=== PATIENT | female | born 1955 | race Caucasian/White ===

== ENCOUNTER 2020-09-14 13:30 | Outpatient (RCR) | payer MEDICARE, OTHER, SELFPAY | END 2020-09-14 13:47 | disposition other institution (70) | LOC: HO.PT 13:30 | PROVIDERS: PCP Internal Medicine; Visit Provider Internal Medicine | DX: R42 Dizziness and giddiness (principal) | CPT/HCPCS: 95992; 97112; 97140; 97530; 97535 ==

== ENCOUNTER 2020-10-29 09:34 | Outpatient (REF) | payer MEDICARE, OTHER, SELFPAY ==
[2020-10-29 10:06] LABS: MANUAL DIFF FLAG NO
[2020-10-29 10:15] LABS: Basophils Percent Auto 0.7 % (0-2); Eosinophils Absolute Auto 0.1 X10*3/uL (0.0-0.4); Eosinophils Percent Auto 3.2 % (0-4); Hematocrit 43.8 % (37-47); Hemoglobin 13.8 g/dl (12.0-16.0); Imm Gran Abs Auto 0.02 X10*3/uL (0.00-0.03); Imm Gran Pct Auto 0.5 % (0.0-0.4); Lymphocytes Absolute Auto 1.6 X10*3/uL (1.2-4.9); Lymphocytes Percent Auto 36.5 % (20-40); Mean Corpuscular HGB Conc 31.5 g/dl (31.0-35.0); Mean Corpuscular Hemoglobin 29.4 pg (27.0-33.0); Mean Corpuscular Volume 93.2 fL (80-98); Mean Platelet Volume 9.7 fL (9.4-12.3); Monocytes Absolute Auto 0.4 X10*3/uL (0.1-1.2); Monocytes Percent Auto 8.6 % (2-11); Neutrophils Absolute Auto 2.2 X10*3/uL (2.0-8.3); Neutrophils Percent Auto 50.5 % (45-73); Platelet Count 362 X10*3/uL (160-400); Red Cell Distribution Width 12.8 % (11.0-16.0); White Blood Count 4.4 X10*3/uL (4.8-10.8)
[2020-10-29 10:41] LABS: Alanine Aminotransferase 11 U/L (0-31); Albumin Level 3.9 g/dL (3.5-5.0); Alkaline Phosphatase 110 U/L (39-117); Anion Gap 10 (12-20); Aspartate Amino Transferase 15 U/L (5-31); Bilirubin Direct 0.2 mg/dL (0.0-0.5); Bilirubin Total 0.7 mg/dL (0.0-1.0); Blood Urea Nitrogen 15 mg/dL (9-16); Calcium 9.2 mg/dL (8.4-10.2); Carbon Dioxide 29 mmol/L (22-29); Chloride 104 mmol/L (96-108); Estimated Glomerular Filt Rate > 60; Glucose Random 120 mg/dL (60-115); Potassium 4.9 mmol/L (3.3-5.1); Sodium 138 mmol/L (135-145); Total Protein 6.8 g/dL (6.5-8.0)
[2020-10-29 11:01] LABS: TSH reflex Free T4 4.55 uIU/mL (0.32-4.0); Vitamin D 25-OH Total 31.4 ng/mL (>30)
[2020-10-29 11:13] LABS: Erythrocyte Sedimentation Rate 23 MM/HR (0-20)
[2020-10-29 11:35] LABS: Free T4 (Free Thyroxine) 0.87 ng/dL (0.71-1.85)
[2020-10-29 11:43] LABS: Estimated Average Glucose 114 mg/dL; Hemoglobin A1c % 5.6 %
[2020-10-29 18:13] LABS: Folate 4.6 ng/mL (> or = 4.0); Vitamin B12 416 pg/mL (200-900)
== END 2020-10-29 09:35 | disposition home or self-care (01) ==
LOC: HO.LAB 09:34
PROVIDERS: PCP Internal Medicine; Visit Provider Internal Medicine
DX: Z00.00 Encounter for general adult medical examination without abnormal findings (principal); E55.9 Vitamin D deficiency, unspecified; R42 Dizziness and giddiness
CPT/HCPCS: 36415; 80048; 80076; 82306; 82607; 82746; 83036; 84439; 84443; 85025; 85652

== ENCOUNTER 2020-10-31 13:23 | Outpatient (REF) | payer MEDICARE, OTHER, SELFPAY ==
--- NOTE | ~2020-10-31 | MR_ITS ---
MR BRAIN WITHOUT AND WITH IV CONTRAST CLINICAL INFORMATION: Worsening vertigo, refractory to medication. COMPARISON: None available. TECHNIQUE: Multiplanar, multisequence MRI of the brain was obtained before and after the intravenous administration of 7 mL Gadavist. FINDINGS: There is no pathologic intracranial enhancement. 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 There is no hydrocephalus, extra-axial surface collection, or herniation. The major flow voids at the skull base are preserved. There is no acute infarct on diffusion-weighted imaging. There is no intracranial hemorrhage on the gradient recalled echo acquisition. The midline structures are normal. The cerebellar tonsils are normally positioned. The cerebellum and brainstem are normal. The craniocervical junction is normal. Osseous marrow signal intensity is homogenous. Partially imaged large mass within the left carotid space partially imaged at the lowermost aspects of this study, better defined on the 01/13/[address] This lesion cannot be diagnostically compared across modalities. There is a retention cyst within the left maxillary sinus and there is mild mucosal thickening within the ethmoid air cells bilaterally. Small bilateral mastoid effusions. MR/MR head/brain wo/w con IMPRESSION: - Partially imaged large mass within the left carotid space at the lowermost aspects of this study, better defined on the 01/13/[address] This lesion cannot be diagnostically compared across modalities. - No acute intracranial findings. No enhancing lesions. 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
== END 2020-10-31 13:24 | disposition home or self-care (01) ==
LOC: HO.MRI 13:23
PROVIDERS: PCP Internal Medicine; Visit Provider Internal Medicine
DX: R42 Dizziness and giddiness (principal)
CPT/HCPCS: 70553; A9585

== ENCOUNTER 2021-02-21 11:19 | Outpatient (REF) | payer MEDICARE, OTHER, SELFPAY ==
--- NOTE | ~2021-02-21 | MM_ITS ---
EXAMINATION: MM SCREENING DIGITAL BREAST TOMOSYNTHESIS, BILATERAL CLINICAL INFORMATION: Screening. Asymptomatic. The lifetime risk of breast cancer based on the Tyrer-Cuzick Model is 1.9%. COMPARISON: Mammography: January 13, 2018 TECHNIQUE: Digital breast tomosynthesis is performed in both the craniocaudal and mediolateral oblique views along with computer-aided detection (CAD). Synthesized 2D images are generated from the tomosynthesis. Additional right exaggerated craniocaudal view performed. FINDINGS: There are scattered areas of fibroglandular density (ACR BI-RADS breast composition Category b). There are no significant masses, abnormal calcifications, or other abnormalities. MM/MM tomosynthesis screening BI IMPRESSION: There are no significant changes from prior study. ASSESSMENT: BI-RADS 1: Negative RECOMMENDATION: Routine annual mammography screening. This patient's information was entered into a reminder system with a target due date for their next mammogram.
== END 2021-02-21 11:20 | disposition home or self-care (01) ==
LOC: HO.MAMMO 11:19
PROVIDERS: Visit Provider Internal Medicine
DX: Z12.31 Encounter for screening mammogram for malignant neoplasm of breast (principal)
CPT/HCPCS: 77063; 77067

== ENCOUNTER 2021-09-17 13:25 | Outpatient (RCR) | payer MEDICARE, OTHER, SELFPAY ==
[2021-09-17 13:59] VITALS: BP 129/67; PULSE 85
== END 2021-11-06 14:33 | disposition home or self-care (01) ==
LOC: HO.PT 13:25
PROVIDERS: PCP Internal Medicine; Visit Provider Nurse Practitioner Primary Care
DX: R42 Dizziness and giddiness (principal)
CPT/HCPCS: 97112; 97161

== ENCOUNTER 2022-03-05 11:43 | Outpatient (REF) | payer MEDICARE, OTHER, SELFPAY ==
--- NOTE | ~2022-03-05 | MM_ITS ---
EXAMINATION: MM SCREENING DIGITAL BREAST TOMOSYNTHESIS, BILATERAL CLINICAL INFORMATION: Screening. Asymptomatic. The lifetime risk of breast cancer based on the Tyrer-Cuzick Model is 2.0%. COMPARISON: Mammography: February 21, 2021 and January 13, 2018 TECHNIQUE: Digital breast tomosynthesis is performed in both the craniocaudal and mediolateral oblique views along with computer-aided detection (CAD). Synthesized 2D images are generated from the tomosynthesis. FINDINGS: There are scattered areas of fibroglandular density (ACR BI-RADS breast composition Category b). There are no significant masses, abnormal calcifications, or other abnormalities. MM/MM tomosynthesis screening BI IMPRESSION: There are no significant changes from prior study. ASSESSMENT: BI-RADS 1: Negative RECOMMENDATION: Routine annual mammography screening. This patient's information was entered into a reminder system with a target due date for their next mammogram.
== END 2022-03-05 11:44 | disposition home or self-care (01) ==
LOC: HO.MAMMO 11:43
PROVIDERS: Visit Provider Internal Medicine
DX: Z12.31 Encounter for screening mammogram for malignant neoplasm of breast (principal)
CPT/HCPCS: 77063; 77067

== ENCOUNTER 2022-09-10 13:46 | Outpatient (REF) | payer MEDICARE, OTHER, SELFPAY ==
--- NOTE | 2022-09-10 08:45 | EMG_ITS ---
Please see scanned EMG / Nerve Conduction Report. MTDD
== END 2022-09-10 13:47 | disposition home or self-care (01) ==
LOC: HO.NEURO 13:46
PROVIDERS: Visit Provider Internal Medicine
DX: G56.03 Carpal tunnel syndrome, bilateral upper limbs (principal)
CPT/HCPCS: 95885; 95913

== ENCOUNTER 2023-03-11 11:24 | Outpatient (REF) | payer MEDICARE, OTHER, SELFPAY ==
--- NOTE | ~2023-03-11 | MM_ITS ---
EXAMINATION: MM SCREENING DIGITAL BREAST TOMOSYNTHESIS, BILATERAL CLINICAL INFORMATION: Screening. Asymptomatic. The lifetime risk of breast cancer based on the Tyrer-Cuzick Model is 3%. COMPARISON: Mammography: 03/05/2022, 02/21/2021, 01/13/2018 (new baseline) TECHNIQUE: Digital breast tomosynthesis is performed in both the craniocaudal and mediolateral oblique views along with computer-aided detection (CAD). Synthesized 2D images are generated from the tomosynthesis. FINDINGS: There are scattered areas of fibroglandular density (ACR BI-RADS breast composition Category b). There are no significant masses, abnormal calcifications, or other abnormalities. Parenchymal pattern is similar to prior studies. There is no developing density or architectural abnormality. The axilla and skin contours are unremarkable. No significant changes. MM/MM tomosynthesis screening BI IMPRESSION: No mammographic evidence of malignancy. ASSESSMENT: BI-RADS 1: Negative RECOMMENDATION: Routine annual mammography screening. This patient's information was entered into a reminder system with a target due date for their next mammogram.
== END 2023-03-11 11:25 | disposition home or self-care (01) ==
LOC: HO.MAMMO 11:24
PROVIDERS: PCP Internal Medicine; Visit Provider Internal Medicine
DX: Z12.31 Encounter for screening mammogram for malignant neoplasm of breast (principal)
CPT/HCPCS: 77063; 77067

== ENCOUNTER 2023-04-07 20:28 | Outpatient (REF) | payer MEDICARE, OTHER, SELFPAY | END 2023-04-07 20:29 | disposition home or self-care (01) | LOC: HO.HHCLNP 20:28 | PROVIDERS: Visit Provider Emergency Medicine | DX: J02.9 Acute pharyngitis, unspecified (principal) | CPT/HCPCS: 87070 ==

== ENCOUNTER 2023-04-08 10:43 | Outpatient (REF) | payer MEDICARE, OTHER, SELFPAY | END 2023-04-08 10:44 | disposition home or self-care (01) | LOC: HO.LNP 10:43 | PROVIDERS: Visit Provider Emergency Medicine | DX: J02.9 Acute pharyngitis, unspecified (principal); Z20.822 Contact with and (suspected) exposure to COVID-19 | CPT/HCPCS: 87636 ==

== ENCOUNTER 2024-11-11 14:33 | Outpatient (REF) | payer OTHER, SELFPAY ==
--- OUTSIDE RECORDS SUMMARY | 2024-11-11 15:02 | XMS_ITS | Clinical Summary ---
Author Organization [employer] Address [address] [place] [address] [address] [place] [address] Care Team Providers Care Leisure Studies Professor Name Role Phone Name, Torres OWENS Primary Care Provider [phone] Allergies No known active allergies Medications acetaminophen [...] Care Team Description 09/14/2024 Community Care Management [facility] [address] [place] [address] Physician Sheppard MD from Last 3 Months [...] Recently Relevant to Health Maintenance Insurance MEDICARE [facility] PPO [employer] MEDICARE Care Teams Leisure Studies Professor Relationship Specialty Start Date End Date Name, MD Torres [address] [place] [address] PCP - General Internal Medicine 06/01/24
--- OUTSIDE RECORDS SUMMARY | 2024-11-11 15:02 | XMS_ITS | Encounter Summary ---
Author Organization [employer] Address [address] [facility] [address] [place] [address] Care Team Providers Care Chemical Strength Tester Name Role Phone Name, Torres OWENS Primary Care Provider [phone] Encounter Details Date Type Department Care Team (Late st Contact Info) Description 09/14/2024 Community Care Management [facility] [address] [place] [address] Epiccare Link, Physician, Social History Tobacco Use [...] documented as of this encounter Care Teams Chemical Strength Tester Relationship Specialty Start Date End Date Name, MD Torres [address] [place] [address] PCP - General Internal Medicine 06/01/24 documented as of this encounter
--- OUTSIDE RECORDS SUMMARY | 2024-11-11 15:02 | XMS_ITS | Encounter Summary ---
Author Organization [employer] Address [address] [facility] [address] [place] [address] Care Team Providers Care Production Roustabout Name Role Phone Liz Muse Primary Care Provider [phone] Name, Torres OWENS Primary Care Provider [phone] Reason for Visit * Reason Onset Date Comments Results 09/16/2022 Encounter Details Date Type Department Care Team ([facility] st Contact Info) Description 09/16/2022 Telephone [facility] [address] [place], [place] [phone] Carmen Davis MD Results Social History Tobacco [...] on filedocumented in this encounter Care Teams Production Roustabout Relationship Specialty Start Date End Date Liz Muse FNP [address] [place] [address] PCP - General Family Medicine 09/16/22 05/31/24 Name, MD Torres [address] [place] [address] PCP - General Internal Medicine 06/01/24 documented as of this encounter
== END 2024-11-11 14:34 | disposition home or self-care (01) ==
LOC: HO.LAB 14:33
PROVIDERS: PCP Internal Medicine; Visit Provider Urology
DX: N39.0 Urinary tract infection, site not specified (principal); N39.41 Urge incontinence; R35.1 Nocturia
CPT/HCPCS: 51798; 81003; 87086; 87088; 87186

== ENCOUNTER 2024-11-11 14:33 | Outpatient (AMB) | payer OTHER, SELFPAY ==
--- OUTSIDE RECORDS SUMMARY | 2024-11-11 14:36 | XMS_ITS | Encounter Summary ---
Author Organization [employer] Address [address] [facility] [address] [place] [address] Care Team Providers Care Clinical Social Work Therapist Name Role Phone Liz Muse Primary Care Provider [phone] Name, Torres OWENS Primary Care Provider Reason for Visit * Reason Onset Date Comments Results 09/16/2022 Encounter Details Date Type Department Care Team ([facility] st Contact Info) Description 09/16/[address] [facility] [address] [place], [place] [id number] Carmen Davis MD Results Social History Tobacco Use Types Packs/Day Years Used Date Smoking Tobacco: Never Assessed Comments Unknown Sex and Gender Information Value Date Recorded Sex Assigned at Female 07/28/2022 10:18 AM EDT Legal Sex Female 10:18 AM EDT Gender Identity Female 07/28/2022 10:18 AM EDT Sexual Orientation Straight 07/28/2022 10 :18 AM EDT documented as of this encounter Miscellaneous Notes * Telephone Encounter - Rosie Obando - 09/16/2022 2:54 PM EST Tc from pt requesting a call back with Carpal tunnel results. PCP DR. Davis documented in this encounter Plan of Treatment Not on file documented as of this encounter Visit Diagnoses Not on filedocumented in this encounter Care Teams Clinical Social Work Therapist Relationship Specialty Start Date End Date Liz Muse FNP [address] [place] [address] PCP - General Family Medicine 09/16/22 05/31/24 Name, MD Torres [address] [place] [address] PCP - General Internal Medicine 06/01/24 documented as of this encounter
--- OUTSIDE RECORDS SUMMARY | 2024-11-11 14:36 | XMS_ITS | Clinical Summary ---
Author Organization [employer] Address [address] [place] [address] [address] [place] [address] Care Team Providers Care Coil Connector Repairer Name Role Phone Name, Torres OWENS Primary Care Provider [phone] Allergies No known active allergies Medications acetaminophen (Tylenol) 500 MG tablet Take 2 tablets (1,000 mg) by mouth every 6 (six) hours if needed for moderate pain or fever for up to 25 doses. 50 tablet 04/07/2023 Active Incontinence Supply Disposable (Prevail Adult Brief Large) miscIndications :Incontinence in female 1 Pad if needed in the morning, at noon, and at bedtime (urinary incontinence) . 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 Impaired fasting glucose 07/10/2017 Hepatitis C antibody test positive 06/22/2017 Osteoarthritis of knee 06/22/2017 Impaired glucose tolerance 06/22/2017 Encounters Date Type Department Care Team Description 09/14/2024 Community Care Management [facility] [address] [place] [address] Physician Sheppard MD from Last 3 Months Immunizations Name Administration Dates Next Due Moderna Covid-19 Vaccine 6+ Bivalent 12/12/2022 Pneumococcal Conjugate PCV 13 03/07/2021 Tdap 12/10/2017,12/06/2009 Zoster, live 12/10/2017 Family History Medical History Relation Name Comments Prostate cancer Father Heart attack Mother Heart failure Mother Relation Name Status Comments Father Mother Social History Tobacco Use Types Packs/Day Years Used Date Smoking Tobacco: Never Smokeless Tobacco: Never Tobacco Cessation:Counseling Given: Not Answered Alcohol Use Standard Drinks/Week Comments Not Currently 0 (1 standard drink = 0.6 oz pur e alcohol) Depression Answer Date Recorded Patient Health Questionnaire-9 Score 0 10/31/2022 Housing Stability Answer Date Recorded What is your housing situation today? I have nola diez 08/05/[address] you li ve. Do you have problems with any of the following? None of the above 08/05/2023 Food Insecurity Answer Date Recorded Within the past 12 months, y ou worried that your food would run out before you got money to buy more: Never True 08/05/2023 Within the past 12 months,th e food you bought just didn't last and you didn't have enough money to get more: Never True 04/2023 Transportation Answer Date Recorded In the past 12 months, has l ack of transportation kept you from medical appts, meetings, work or from getting things needed for daily living? No 08/05/2023 Utilities Answer Date Recorded In the past 12 months, has t he electric, gas, oil or water company threatened to shut off services in your home? No 08/05/2023 Depression Answer Date Recorded Patient Health Questionnaire-2 Score 0 10/31/2022 Comments Unknown Sex and Gender Information Value Date Recorded Sex Assigned at Female 07/28/2022 10:18 AM EDT Legal Sex Female 10:18 AM EDT Gender Identity Female 07/28/2022 10:18 AM EDT Sexual Orientation Straight 07/28/2022 10 :18 AM EDT Last Filed Vital Signs Vital Sign Reading Time Taken Comments Blood Pressure 119/73 05/04/2024 3:29 PM EDT Pulse 85 05/04/2024 3:29 PM EDT Temperature 36.7 ??C (98 ??F) 04/07/2023 10:12 AM EDT Respiratory Rate 14 05/04/2024 3:29 PM EDT Oxygen Saturation 98% 05/04/2024 3:29 PM EDT Inhaled Oxygen Concentration - - Weight 73.8 kg (162 lb 9.6 oz) 05/04/2024 3:29 P M EDT Height 165.1 cm (5' 5 ) 10/31/2022 10:36 AM EST Body Mass Index 27.06 10/31/2022 10:36 AM EST Plan of Treatment Health Maintenance Due Date Last Done Comments CT Colonography 1953 Colonoscopy 1953 Colorectal Cancer Screening 1953 FIT DNA/Cologuard 1953 FIT 1953 FOBT 1953 Sigmoidoscopy 1953 Alcohol/Substance Use Screening 1965 Hepatitis C Screening 1971 Zoster Vaccines (2 of 3) 02/04/2018 12/10/2017 Pneumococcal Vaccine: 50+ Years (2 of 2 - PPSV23) 03/07/2022 03/07/2021 Depression Screening 10/31/2023 10/31/2022, 10/31/19 SDOH Screening 10/31/2023 10/31/2022 Mammogram 03/05/2024 03/05/2022, 01/27, 01/18/2018 COVID-19 Vaccine ( season) 2024 12/12/2022, 08/29/2021, 01/28/2021, Additional history exists Influenza Vaccine (#1) 2024 Tobacco Screening 05/04/2025 05/04/2024 DTaP/Tdap/Td Vaccines (3 - Td or Tdap) 12/11/2027 12/10/2017, 12/06/2009 RSV Patients and Patients Aged 60 years or older (1 - 1-dose 75+ series) 01/30/2028 HIB Vaccines Aged Out No longer eligi ble based on patient's age to complete this topic HPV Vaccines Aged Out No longer eligi ble based on patient's age to complete this topic Hepatitis A Vaccines Aged Out No long er eligible based on patient's age to complete this topic Hepatitis B Vaccines Aged Out No long er eligible based on patient's age to complete this topic IPV Vaccines Aged Out No longer eligi ble based on patient's age to complete this topic Meningococcal Vaccine Aged Out No cheyanne zhanna eligible based on patient's age to complete this topic RSV under 20 months Aged Out No longe r eligible based on patient's age to complete this topic Rotavirus Vaccines Aged Out No longer eligible based on patient's age to complete this topic Procedures Procedure Name Priority Date/Time Associated Diagnosis Comments MAMMOGRAM GENERIC Routine 03/05/2022 12: 18 PM EDT from Last 3 Months or Most Recently Relevant to Health Maintenance Results * Mammography Report 1 (03/05/2022 12:18 PM EDT) Anatomical Region Laterality Modality Breast Bilateral Mammography 03/05/2022 12:1 8 PM EDT Narrative 04/02/2022 4:13 PM EDT Refer to the Notes tab for result details [facility] Procedure: Mammography Report 1 Procedure Note Provider, MD Bryce - 12/21/2022 Refer to the Notes tab for result details Legacy Procedure: Mammography Report 1 Carmen Davis MD IMG BI PROCEDURES Final Resu lt from Last 3 Months or Most Recently Relevant to Health Maintenance Insurance MEDICARE [facility] PARTIAL [facility] PPO [employer] MEDICARE Care Teams Coil Connector Repairer Relationship Specialty Start Date End Date Name, MD Torres [address] [place] [address] PCP - General Internal Medicine 06/01/24
--- OUTSIDE RECORDS SUMMARY | 2024-11-11 14:36 | XMS_ITS | Encounter Summary ---
Author Organization [employer] Address [address] [facility] [address] [place] [address] Care Team Providers Care Transportation Planner Name Role Phone Name, Torres OWENS Primary Care Provider [phone] Encounter Details Date Type Department Care Team (Late st Contact Info) Description 09/14/2024 Community Care Management [facility] [address] [place] [address] Epiccare Link, Physician, Social History Tobacco Use Types Packs/Day Years Used Date Smoking Tobacco: Never Smokeless Tobacco: Never Alcohol Use Standard Drinks/Week Comments Not Currently [...] AM EDT documented as of this encounter Plan of Treatment Not on file documented as of this encounter Visit Diagnoses Not on filedocumented in this encounter Additional Health Concerns Assessment Noted Time PHQ-9 Depression Total Score: 0 10/31/19 23 10:43 AM EST documented as of this encounter Care Teams Transportation Planner Relationship Specialty Start Date End Date Name, MD Torres [address] [place] [address] PCP - General Internal Medicine 06/01/24 documented as of this encounter
--- NOTE | 2024-11-11 14:41 | MHC.OFFVIS ---
Intake Visit Reasons: urinary incontinence/PVR Intake Note: Patient is present for Urinary Incontience Urology Med: None Antibiotic Allergy: None Blood Thinner: None PVR: 85ml Plywood Patcher Required: No Accompanied by: Self / Same As Patient Allergies No Known Allergies Allergy (Verified 11/11/24 14:56) Medication List - Last Reconciled 11/11/24 by Yudith Hill MD sulfamethoxazole-trimethoprim 800-160 mg (Bactrim DS) 1 tab PO BID HPI Comments Details: Marline is a 69 year old female who is here with complaints of nocturia and urge incontinence which started one month ago. She denies dysuria, during the day she is able to make it to the bathroom and does not leak urine. Urinalysis nitrite positive. Will empiracally start bactrim DS one tab bid for 7 days pending urine c/s. Renal and bladder US. FU office cystoscopy. [facility] Medical History Impaired glucose tolerance Osteoarthritis of knee Hepatitis C antibody positive in blood Impaired fasting glucose Paraganglioma Dizziness Bilateral carpal tunnel syndrome Stress incontinence Review of Systems Const All systems reviewed & are unremarkable except as noted in HPI and below Reports no additional complaints Eyes Reports no additional complaints ENT Reports no additional complaints Card Reports no additional complaints Resp Reports no additional complaints GI Reports no additional complaints Reports as per HPI Musc Reports no additional complaints Skin/Breast Reports system reviewed and no additional complaints, except as documented Neuro Reports no additional complaints Psych Reports no additional complaints Endo Reports no additional complaints Gage/Lymph Reports no additional complaints Aller/Immun Reports no additional complaints Physical Exam Const General: cooperative, healthy appearing and no acute distress Orientation/consciousness: patient oriented x3 HEENT Head: Yes normal to inspection, Yes normocephalic and Yes atraumatic Eyes Conjunctivae: conjunctivae normal Neck Neck: Yes normal visual inspection and Yes trachea midline Chest Chest palpation & inspection: normal inspection of the chest Resp Effort & Inspection: normal respiratory effort GI Inspection: Yes normal to inspection Neuro General: patient oriented x3 Psych Appearance: grossly normal Office Procedures Post Void Residual Post Residual Void Post Void Residual (PVR): 85 [id number] Void Residual by ultrasound Results AMB Urinalysis, Automated UA Leukoctes 0 Elvia/uL Last Edit by LISSA Grider on 11/11/24 14:58 UA Nitrite Positive Last Edit by Juli Whyte, RMA on 11/11/24 14:58 UA Urobilinogen 0.2 mg/dL Last Edit by Juli Whyte, RMA on 11/11/24 14:58 UA Protein 0 mg/dL Last Edit by Juli Whyte, RMA on 11/11/24 14:58 UA pH 6.0 Last Edit by Juli Whyte, RMA on 11/11/24 14:58 UA Blood 10 Jose/uL Last Edit by Juli Whyte, RMA on 11/11/24 14:58 UA Specific Phoenix 1.010 Last Edit by Juli Whyte, RMA on 11/11/24 14:58 UA Ketone Negative Last Edit by Juli Whyte, RMA on 11/11/24 14:58 UA Bilirubin 0 mg/dL Last Edit by Juli Whyte, RMA on 11/11/24 14:58 UA Glucose 0 mg/dL Last Edit by Juli Whyte, RMA on 11/11/24 14:58 Results Reviewed Results Reviewed: Laboratory Last Values Urine pH (Auto) 6.0 11/11/24 14:57 Specific Phoenix (Auto) 1.010 11/11/24 14:57 Urine Protein (Auto) 0 mg/dL 11/11/24 14:57 Glucose (UA)(Auto) 0 mg/dL 11/11/24 14:57 Urine Ketones (Auto) Negative 11/11/24 14:57 Urine Blood (Auto) 10 Jose/uL 11/11/24 14:57 Urine Nitrite (Auto) Positive 11/11/24 14:57 Urine Bilirubin (Auto) 0 mg/dL 11/11/24 14:57 Urine Urobilinogen (Auto) 0.2 mg/dL 11/11/24 14:57 Leukocyte Esterase (Auto) 0 Elvia/uL 11/11/24 14:57 Assessment & Plan Assessment & Plan (1) UTI (urinary tract infection): Code(s): N39.0 - Urinary tract infection, site not specified Category: Medical (2) Nocturia: Code(s): R35.1 - Nocturia Category: Medical (3) Urge incontinence of urine: Code(s): N39.41 - Urge incontinence Category: Medical Plan Nocturia and urge incontinence which started one month ago. She denies dysuria, during the day she is able to make it to the bathroom and does not leak urine. Urinalysis nitrite positive. Will empiracally start bactrim DS one tab bid for 7 days pending urine c/s. Renal and bladder US. FU office cystoscopy. Orders: Orders AMB Urinalysis Automated Today Z13.9 - Encounter for screening, unspecified US retroperitoneal comp Today N39.0 - Urinary tract infection, site not specified, R35.1 - Nocturia AMB Post Void Residual by ultrasound Today N39.3 - Stress incontinence (female) (male) Urine Culture Today N39.0 - Urinary tract infection, site not specified Medications: New sulfamethoxazole-trimethoprim 800-160 mg (Bactrim DS) 1 tab PO BID 14 tabs 0RF Patient Instructions: The patient had an opportunity to ask questions regarding treatment plan. The patient expressed understanding and agreement with the above treatment plan. The patient is aware they should contact our office by phone for worsening of their current condition or the appearance of new symptoms. Compliance is encouraged with any medications and followup testing that is ordered. It is a privilege to be allowed the opportunity to participate in the urologic care of your patient. If you have any questions or concerns regarding treatment for the above conditions please do not hesitate to contact me. The office telephone contact is [phone]. This note is constructed in part using voice recognition software. While every effort has been made to ensure accuracy senior inspector errors may have been included. Yours sincerely, Yudith Hill MD Coding Level of Care Code New Pt Level 4 (17779) Diagnoses UTI (urinary tract infection) N39.0 Nocturia R35.1 Urge incontinence of urine N39.41 CPT Codes Post Residual Void - PVR CPT Code: 60668-[id number] Void Residual by ultrasound ([id number])
== END 2024-11-11 15:17 | disposition home or self-care (01) ==
PROVIDERS: PCP Internal Medicine; Visit Provider Urology
DX: N39.0 Urinary tract infection, site not specified (principal); R35.1 Nocturia; N39.41 Urge incontinence; Z13.9 Encounter for screening, unspecified
CPT/HCPCS: 99204

== ENCOUNTER 2024-12-27 10:21 | Outpatient (REF) | payer OTHER, SELFPAY ==
--- NOTE | ~2024-12-27 | US_ITS ---
EXAMINATION: US KIDNEY BILATERAL HISTORY: N39.0 - Urinary tract infection, site not specified TECHNIQUE: Real-time grayscale ultrasound imaging of the kidneys was performed and images were reviewed. COMPARISON: Comparison is made with the prior examination dated 01/21/2019. FINDINGS: Right kidney: The right kidney measures 8.0 x 3.8 x 4.3 cm. There is mild renal cortical thinning. There are no masses. There is no hydronephrosis or renal calculi. Left Kidney: The left kidney measures 8.7 x 4.2 x 4.2 cm. There is mild renal cortical thinning. There are no masses. There is no hydronephrosis or renal calculi. US/US renal BI IMPRESSION: Mild renal cortical thinning. Otherwise unremarkable renal ultrasound. Electronically signed by: Gume Allison MD 12/27/2024 11:39 AM EDT
--- OUTSIDE RECORDS SUMMARY | 2024-12-27 12:13 | XMS_ITS | Encounter Summary ---
Author Organization [employer] Address [address] [facility] [address] [place] [address] Care Team Providers Care Tensile Tester Name Role Phone Liz Muse Primary Care Provider [phone] Name, Torres OWENS Primary Care Provider [phone] Reason for Visit * Reason Onset Date Comments Results 09/16/2022 Encounter Details Date Type Department Care Team ([facility] st Contact Info) Description 09/16/2022 Telephone [facility]S [address] [place], [place] [id number] Carmen Davis MD Results Social History Tobacco [...] on filedocumented in this encounter Care Teams Tensile Tester Relationship Specialty Start Date End Date Liz Muse FNP [address] [place] [address] PCP - General Family Medicine 09/16/22 05/31/24 Name, MD Torres [address] [place] [address] PCP - General Internal Medicine 06/01/24 documented as of this encounter
--- OUTSIDE RECORDS SUMMARY | 2024-12-27 12:13 | XMS_ITS | Clinical Summary ---
Author Organization [employer] Address [address] [facility] 7t [place] [address] Care Team Providers Care Plastic Technician Name Role Phone Name, Torres OWENS Primary Care Provider [phone] Allergies No known active allergies Medications acetaminophen [...] of knee 06/22/2017 Impaired glucose tolerance 06/22/2017 Immunizations Name Administration Dates Next Due Moderna [...] Recently Relevant to Health Maintenance Insurance MEDICARE Member Subscriber Plan / Payer (Ef fective 2022-Present) Name:Marline Chung Member ID:[id number] Relation to Subscriber:Self Name:Marline Chung Subscriber ID:[id number] Payer ID:STATE Group ID:Not on file Type:Medicare Address: [facility] [address] [place] [address] [facility] PARTIAL [facility] PPO HUMANA MEDICARE Care Teams Plastic Technician Relationship Specialty Start Date End Date Name, MD Torres [address] [place] [id number] PCP - General Internal Medicine 06/01/24
--- OUTSIDE RECORDS SUMMARY | 2024-12-27 12:13 | XMS_ITS | Encounter Summary ---
Author Organization [employer] Address [address] [facility] [address] 7[address] [place] [address] Care Team Providers Care Claim Rep Name Role Phone Name, Torres OWENS Primary Care Provider [phone] Encounter Details Date Type Department Care Team (Late st Contact Info) Description 09/14/2024 Community Care Management [facility] MEDICINE [address] [place] [address] Epiccare Link, Physician, Social History Tobacco Use [...] documented as of this encounter Care Teams Claim Rep Relationship Specialty Start Date End Date Name, MD Torres [address] [place] [address] PCP - General Internal Medicine 06/01/24 documented as of this encounter
== END 2024-12-27 10:22 | disposition home or self-care (01) ==
LOC: HO.US 10:21
PROVIDERS: PCP Internal Medicine; Visit Provider Urology
DX: N39.0 Urinary tract infection, site not specified (principal); R35.1 Nocturia
CPT/HCPCS: 76775

== ENCOUNTER → 2024-12-27 10:23 | Outpatient (BNV) | payer OTHER, SELFPAY | PROVIDERS: PCP Internal Medicine; Visit Provider Radiology Diagnostic Radiology | DX: N39.0 Urinary tract infection, site not specified (principal) | CPT/HCPCS: 76775 ==

== ENCOUNTER 2025-01-03 09:19 | Outpatient (REF) | payer OTHER, SELFPAY ==
--- NOTE | ~2025-01-03 | US_ITS ---
CLINICAL HISTORY: UTI US Urinary Bladder Comparison: None Findings: No bladder lesion. 1.4 x 1.1 x 1.7 cm diverticulum. Prevoid volume: 252 mLPostvoid volume: 37 mL Ureteral jets are visualized bilaterally. IMPRESSION: No postvoid urinary retention of bladder. Bladder diverticulum. This document has been electronically signed by: Neyl Bella MD on 01/03/2025 16:22:47
--- OUTSIDE RECORDS SUMMARY | 2025-01-03 10:21 | XMS_ITS | Clinical Summary ---
Author Organization [employer] Address 75 [facility] 7t [place] [address] Care Team Providers Care Physical Therapy Assistant Instructor Name Role Phone Name, Torres OWENS Primary Care Provider [phone] Allergies No known active allergies Medications acetaminophen [...] Payer (Ef fective 2022-Present) Name:Marline Chung Member ID:[id number] Relation to Subscriber:Self Name:Marline Chung Subscriber ID:[id number] Payer ID:STATE Group ID:Not on file Type:Medicare Address: [facility] [address] [place] [address] [facility] PARTIAL [facility] PPO HUMANA MEDICARE Care Teams Physical Therapy Assistant Instructor Relationship Specialty Start Date End Date Name, MD Torres [address] [place] [id number] PCP - General Internal Medicine 06/01/24
--- OUTSIDE RECORDS SUMMARY | 2025-01-03 10:21 | XMS_ITS | Encounter Summary ---
Author Organization [employer] Address [address] [facility] 7t [place] [address] Care Team Providers Care Crop Ranch Hand Name Role Phone Liz Muse Primary Care Provider [phone] Name, Torres OWENS Primary Care Provider [phone] Reason for Visit * Reason Onset Date Comments Results 09/16/2022 Encounter Details Date Type Department Care Team ([facility] st Contact Info) Description 09/16/2022 Telephone [facility] CHC MED & PEDS [address] [place], [place] [phone] Carmen Davis MD Results Social History Tobacco [...] on filedocumented in this encounter Care Teams Crop Ranch Hand Relationship Specialty Start Date End Date Liz Muse FNP [address] [place] [address] PCP - General Family Medicine 09/16/22 05/31/24 Name, MD Torres [address] [place] [address] PCP - General Internal Medicine 06/01/24 documented as of this encounter
--- OUTSIDE RECORDS SUMMARY | 2025-01-03 10:21 | XMS_ITS | Encounter Summary ---
Author Organization [employer] Address [address] [facility] [address] 7[address] [place] [address] Care Team Providers Care Lard Tub Washer Name Role Phone Name, Torres OWENS Primary Care Provider [phone] Encounter Details Date Type Department Care Team (Late st Contact Info) Description 09/14/2024 Community Care Management [facility] MEDICINE [address] [place] [address] Epiccare Link, Physician, Social History Tobacco Use [...] documented as of this encounter Care Teams Lard Tub Washer Relationship Specialty Start Date End Date Name, MD Torres [address] [place] [address] PCP - General Internal Medicine 06/01/24 documented as of this encounter
== END 2025-01-03 09:20 | disposition home or self-care (01) ==
LOC: HO.US 09:19
PROVIDERS: PCP Internal Medicine; Visit Provider Urology
DX: N39.0 Urinary tract infection, site not specified (principal); R35.1 Nocturia
CPT/HCPCS: 76857

== ENCOUNTER → 2025-01-03 09:20 | Outpatient (BNV) | payer OTHER, SELFPAY | PROVIDERS: PCP Internal Medicine; Visit Provider Nuclear Medicine | DX: N32.3 Diverticulum of bladder (principal) | CPT/HCPCS: 76857 ==

== ENCOUNTER 2025-01-13 10:47 | Outpatient (AMB) | payer MEDICARE, SELFPAY ==
--- NOTE | 2025-01-13 10:47 | MHC.OFFVIS ---
Intake Visit Reasons: 9w/US Intake Note: Patient is present via telehealth for a 9w follow up/US 12/27: ultrasound Urology Med: None Antibiotic Allergy: None Blood Thinner: None Lumber Carrier Operator Required: No Accompanied by: Self / Same As Patient Allergies No Known Allergies Allergy (Verified 01/13/25 10:47) HPI Comments Details: 01/13/25--Marline is a 69 year old female who is here with complaints of nocturia and urge incontinence. Reviewed Renal (12/27/24) and Bladder US (01/03/25) results. Kidneys WNL, bladder diverticulum, adequate emptying. 11/11/24--Marline is a 69 year old female who is here with complaints of nocturia and urge incontinence which started one month ago. She denies dysuria, during the day she is able to make it to the bathroom and does not leak urine. Urinalysis nitrite positive. Will empiracally start bactrim DS one tab bid for 7 days pending urine c/s. Renal and bladder US. FU office cystoscopy. [facility] Medical History Impaired glucose tolerance Osteoarthritis of knee Hepatitis C antibody positive in blood Impaired fasting glucose Paraganglioma Dizziness Bilateral carpal tunnel syndrome Stress incontinence Review of Systems Const All systems reviewed & are unremarkable except as noted in HPI and below Reports no additional complaints Eyes Reports no additional complaints ENT Reports no additional complaints Card Reports no additional complaints Resp Reports no additional complaints GI Reports no additional complaints Reports as per HPI Musc Reports no additional complaints Skin/Breast Reports system reviewed and no additional complaints, except as documented Neuro Reports no additional complaints Psych Reports no additional complaints Endo Reports no additional complaints Gage/Lymph Reports no additional complaints Aller/Immun Reports no additional complaints Telehealth Telehealth Telehealth Platform: Telephone Location of provider rendering services: practice address Location of patient: address on file Patient Identification confirmed using: Name, : Yes Telehealth method: voice only Patient verbally consented to treatment: Yes Patient verbally consented to billing insurance company: Yes Patient informed of any privacy concerns related to visit: Yes Minutes spent on Phone/Video with Pt.: 13 Results Reviewed Results Reviewed: Date of Service: 01/03/25 CLINICAL HISTORY: UTI US Urinary Bladder Comparison: None Findings: No bladder lesion. 1.4 x 1.1 x 1.7 cm diverticulum. Prevoid volume: 252 mLPostvoid volume: 37 mL Ureteral jets are visualized bilaterally. IMPRESSION: No postvoid urinary retention of bladder. Bladder diverticulum. Date of Service: 12/27/24 EXAMINATION: US KIDNEY BILATERAL HISTORY: N39.0 - Urinary tract infection, site not specified TECHNIQUE: Real-time grayscale ultrasound imaging of the kidneys was performed and images were reviewed. COMPARISON: Comparison is made with the prior examination dated 01/21/2019. FINDINGS: Right kidney: The right kidney measures 8.0 x 3.8 x 4.3 cm. There is mild renal cortical thinning. There are no masses. There is no hydronephrosis or renal calculi. Left Kidney: The left kidney measures 8.7 x 4.2 x 4.2 cm. There is mild renal cortical thinning. There are no masses. There is no hydronephrosis or renal calculi. IMPRESSION: Mild renal cortical thinning. Otherwise unremarkable renal ultrasound. Assessment & Plan Assessment & Plan (1) UTI (urinary tract infection): Code(s): N39.0 - Urinary tract infection, site not specified Category: Medical (2) Nocturia: Code(s): R35.1 - Nocturia Category: Medical (3) Urge incontinence of urine: Code(s): N39.41 - Urge incontinence Category: Medical Plan Reviewed US results. Patient Instructions: The patient had an opportunity to ask questions regarding treatment plan. The patient expressed understanding and agreement with the above treatment plan. The patient is aware they should contact our office by phone for worsening of their current condition or the appearance of new symptoms. Compliance is encouraged with any medications and followup testing that is ordered. It is a privilege to be allowed the opportunity to participate in the urologic care of your patient. If you have any questions or concerns regarding treatment for the above conditions please do not hesitate to contact me. The office telephone contact is [phone]. This note is constructed in part using voice recognition software. While every effort has been made to ensure accuracy child and adolescent psychiatrist errors may have been included. Yours sincerely, Yudith Hill MD Coding Level of Care Code Tele Est Pt Level 3 (64304) Diagnoses UTI (urinary tract infection) N39.0 Nocturia R35.1 Urge incontinence of urine N39.41
--- OUTSIDE RECORDS SUMMARY | 2025-01-13 11:48 | XMS_ITS | Encounter Summary ---
Author Organization [employer] Address [address] [facility] [address] 7[address] [place] [address] Care Team Providers Care University Relations Vice President Name Role Phone Name, Torres OWENS Primary Care Provider [phone] Encounter Details Date Type Department Care Team (Late st Contact Info) Description 09/14/2024 Community Care Management [facility] MEDICINE [address] [place] [address] Epiccare Link, Physician, Social History Tobacco Use Types Packs/Day Years Used Date Smoking Tobacco: Never Smokeless Tobacco: Never Alcohol Use Standard Drinks/Week Comments Not Currently 0 (1 standard drink = 0.6 oz pur e alcohol) Depression Answer Date Recorded Patient Health Questionnaire-9 Score 0 10/31/2022 Housing Stability Answer Date Recorded What is your housing situation today? I have nloa diez 08/05/[address] you [...] documented as of this encounter Care Teams University Relations Vice President Relationship Specialty Start Date End Date Name, MD Torres [address] [place] [address] PCP - General Internal Medicine 06/01/24 documented as of this encounter
--- OUTSIDE RECORDS SUMMARY | 2025-01-13 11:48 | XMS_ITS | Encounter Summary ---
Author Organization [employer] Address 75 [facility] 7t [place] [address] Care Team Providers Care Environmental Engineer Scientist Name Role Phone Liz Muse Primary Care Provider [phone] Name, Torres OWENS Primary Care Provider [phone] Reason for Visit * Reason Onset Date Comments Results 09/16/2022 Encounter Details Date Type Department Care Team ([facility] st Contact Info) Description 09/16/2022 Telephone [facility] CHC MED & PEDS [address] [place], [place] [phone] Carmen Davis MD Results Social History Tobacco [...] on filedocumented in this encounter Care Teams Environmental Engineer Scientist Relationship Specialty Start Date End Date Liz Muse FNP [address] [place] [address] PCP - General Family Medicine 09/16/22 05/31/24 Name, MD Torres [address] [place] [address] PCP - General Internal Medicine 06/01/24 documented as of this encounter
--- OUTSIDE RECORDS SUMMARY | 2025-01-13 11:48 | XMS_ITS | Clinical Summary ---
Author Organization [employer] Address 75 [facility] 7t [place] [address] Care Team Providers Care Senior Instructor Name Role Phone Name, Torres OWENS Primary Care Provider [phone] Allergies No known active allergies Medications acetaminophen [...] Payer (Ef fective 2022-Present) Name:Marline Chung Member ID:[id number] Relation to Subscriber:Self Name:Marline Chung Subscriber ID:[id number] Payer ID:STATE Group ID:Not on file Type:Medicare Address: [facility] [address] [place] [address] [facility] PARTIAL [facility] PPO HUMANA MEDICARE Care Teams Senior Instructor Relationship Specialty Start Date End Date Name, MD Torres [address] [place] [id number] PCP - General Internal Medicine 06/01/24
== END 2025-01-13 12:00 | disposition home or self-care (01) ==
LOC: HO.HUSH 10:47
PROVIDERS: PCP Internal Medicine; Visit Provider Urology
DX: N39.0 Urinary tract infection, site not specified (principal); R35.1 Nocturia; N39.41 Urge incontinence
CPT/HCPCS: 99213

== ENCOUNTER 2025-09-20 14:16 | Emergency (ER) | payer MEDICARE, SELFPAY ==
--- OUTSIDE RECORDS SUMMARY | 2025-09-20 16:00 | XMS_ITS | Encounter Summary ---
Author Organization [employer] Address [address] [facility] 7t [place] [address] Care Team Providers Care Php Programmer Name Role Phone Liz Muse Primary Care Provider [phone] NameTorres MD Primary Care Provider [phone] Reason for Visit * Reason Onset Date Comments Results 09/16/2022 Encounter Details Date Type Department Care Team ([facility] st Contact Info) Description 09/16/2022 Telephone [facility] MED & PEDS [address] [place], [place] [phone] Carmen Davis MD Results Social History Tobacco [...] on filedocumented in this encounter Care Teams Php Programmer Relationship Specialty Start Date End Date Liz Muse FNP [address] [place] [address] PCP - General Family Medicine 09/16/22 05/31/24 Name, MD Torres [address] [place] [address] PCP - General Internal Medicine 06/01/24 documented as of this encounter
--- OUTSIDE RECORDS SUMMARY | 2025-09-20 16:00 | XMS_ITS | Clinical Summary ---
Author Organization [employer] Address [address] [facility] 7t [place] [address] Care Team Providers Care Press Catcher Name Role Phone Name, Torres OWENS Primary Care Provider [phone] Allergies No known active allergies Medications acetaminophen (Tylenol) 500 MG tablet Take 2 tablets (1,000 mg) by mouth every 6 (six) hours if needed for moderate pain or fever for up to 25 doses. 50 tablet 04/07/2023 Active Active Problems Problem Noted Date Diagnosed Date Stress incontinence of urine 10/31/2022 Bilateral carpal tunnel syndrome 10/31/2022 Dizziness 10/31/2022 Paraganglioma (CMS/HCC) 04/27/2019 Impaired fasting glucose 07/10/2017 Hepatitis C antibody test positive 06/22/2017 Osteoarthritis of knee 06/22/2017 Impaired glucose tolerance 06/22/2017 Immunizations Immunization Administration Dates Next Due Moderna Covid-19 Vaccine [...] the past 12 months, has t he [employer], gas, oil or water company threatened to [...] 85 05/04/2024 3:29 PM EDT Temperature 36.7 C (98 F) 04/07/2023 10:12 AM EDT Respiratory Rate 14 [...] Vaccine: 50+ Years (2 of 2 - PCV20 or PCV21) 03/07/2022 03/07/2021 Depression Screening 10/31/2023 10/31/2022, 10/31/19 SDOH Screening 10/31/2023 10/31/2022 Mammogram 03/05/2024 03/05/2022, 01/27, 01/18/2018 Tobacco Screening 05/04/2025 05/04/2024 COVID-19 Vaccine ( season) 2025 12/12/2022, 08/29/2021, 01/28/2021, Additional history exists Influenza Vaccine (#1) 2025 DTaP/Tdap/Td Vaccines (3 - Td or Tdap) [...] patient's age to complete this topic Meningococcal B Vaccine Aged Out No l onger eligible based on patient's age to complete [...] Payer (Ef fective 2022-Present) Name:Marline Chung Member ID:[id number] Relation to Subscriber:Self Name:Marline Chung Subscriber ID:[id number] Payer ID:STATE Group ID:Not on file Type:Medicare Address: [facility] [address] [address] [facility] PARTIAL [facility] MEDICARE Care Teams Press Catcher Relationship Specialty Start Date End Date Name, MD Torres [address] [place] [id number] PCP - General Internal Medicine 06/01/24
--- OUTSIDE RECORDS SUMMARY | 2025-09-20 16:00 | XMS_ITS | Encounter Summary ---
Author Organization [employer] Address [address] [facility] 7t [place] [address] Care Team Providers Care Circulation Worker Name Role Phone Name, Torres OWENS Primary Care Provider [phone] Encounter Details Date Type Department Care Team (Late st Contact Info) Description 09/14/2024 Community Care Management [facility] MEDICINE [address] [place], [place] [phone] Epiccare Link, Physician, Social History Tobacco Use Types Packs/Day Years Used Date Smoking Tobacco: Never Smokeless Tobacco: Never Alcohol Use Standard Drinks/Week Comments Not Currently 0 (1 standard drink = 0.6 oz pur e alcohol) Depression Answer Date Recorded Patient Health Questionnaire-9 Score 0 10/31/2022 Housing Stability Answer Date Recorded What is your housing situation today? I have nolacarter diez 08/05/[address] you [...] documented as of this encounter Care Teams Circulation Worker Relationship Specialty Start Date End Date Name, MD Torres [address] [place] [address] PCP - General Internal Medicine 06/01/24 documented as of this encounter
--- NOTE | 2025-09-20 17:27 | PC.NURSE ---
called pt , LWBS, pt reports that she didn't want to wait and it seemed like symptoms were improving. aware that she can come back to be seen, but declined at this time.
== END 2025-09-20 16:00 | disposition left against medical advice (07) ==
PROVIDERS: Emergency Provider Emergency Medicine
DX: R05.9 Cough, unspecified (principal); Z53.21 Procedure and treatment not carried out due to patient leaving prior to being seen by health care provider